=== PATIENT | female | born 1980 | race Caucasian/White ===

== ENCOUNTER 2021-07-11 09:44 | Emergency (ER) | payer SELFPAY ==
[~2021-07-11] VITALS: Ht 170.2 cm; Wt 60.8 kg
[2021-07-11] MEDS ORDERED: SODIUM CHLORIDE 0.9% 100 ML ONE (10:20)
[2021-07-11] MEDS ORDERED: SODIUM CHLORIDE 0.9% 100 ML 100 ML IV ONE (11:00)
[2021-07-11] MEDS ORDERED: CASIRIVIMAB/IMDEVIMAB 10 ML in SODIUM CHLORIDE 0.9% 100 ML IV ONE (11:00)
== END 2021-07-11 11:25 | disposition home or self-care (01) ==
LOC: ER 10:01
DX: U07.1 COVID-19 (principal); R05 Cough
CPT/HCPCS: 99283; J7050